=== PATIENT | female | born 1995 | race Caucasian/White ===

== ENCOUNTER 2017-04-03 15:12 | Emergency (ER) | payer MEDICAID ==
[2017-04-03 15:12] VITALS: BMI 31.2
[2017-04-03 15:17] VITALS: BP 149/80; PULSE 68; RESP 18; TEMP 99.1; O2SAT 100
--- NOTE | 2017-04-03 15:24 | ED PDOC ---
Lower Extremity Pain/Injury Time Seen by Provider: 04/03/17 15:22 Chief Complaint (Nursing): Lower Extremity Problem/Injury Chief Complaint (Provider): right foot injury History Per: Patient (Patient here with right foot twisting injury that occurred today when she twisted foot on pothole. Denies any head injury/hand injury.) Past Medical History Reviewed: Historical Data, Nursing Documentation, Vital Signs Vital Signs: Last Vital Signs Temp 99.1 F 04/03/17 15:13 Pulse 68 04/03/17 15:13 Resp 18 04/03/17 15:13 BP 149/80 04/03/17 15:13 Pulse Ox 100 04/03/17 15:13 - Family History Family History: States: Unknown Family Hx - Immunization History Hx Tetanus Toxoid Vaccination: No Hx Influenza Vaccination: No Hx Pneumococcal Vaccination: No - Home Medications Home Medications: Ambulatory Orders Medication Instructions Recorded DiphenhydrAMINE [Benadryl] 25 mg PO Q4H #20 cap 02/08/14 Prednisone 2 tab PO DAILY #10 tab 02/08/14 Naproxen 375 mg PO Q8 PRN #21 tablet 04/03/17 - Allergies Allergies/Adverse Reactions: Allergies Allergy/AdvReac Type Severity Reaction Status Date / Time No Known Allergies Allergy Unverified 02/08/14 12:01 Review of Systems ROS Statement: Except As Marked, All Systems Reviewed And Found Negative Musculoskeletal: Positive for: Foot Pain Physical Exam - Reviewed Nursing Documentation Reviewed: Yes Vital Signs Reviewed: Yes - Physical Exam Appears: Positive for: Well, Non-toxic, No Acute Distress Head Exam: Positive for: ATRAUMATIC, NORMAL INSPECTION, NORMOCEPHALIC Skin: Positive for: Normal Color, Warm, DRY Eye Exam: Positive for: EOMI, Normal appearance, PERRL ENT: Positive for: Normal ENT Inspection Neck: Positive for: Normal, Painless ROM Cardiovascular/Chest: Positive for: Regular Rate, Rhythm Respiratory: Positive for: CNT, Normal Breath Sounds Gastrointestinal/Abdominal: Positive for: Normal Exam, Bowel Sounds, Soft Back: Positive for: Normal Inspection Extremity: Positive for: Normal ROM, Tenderness, Swelling (right high speed warper tender lateral aspect; abrasion noted) Neurologic/Psych: Positive for: Alert, Oriented - ECG O2 Sat by Pulse Oximetry: 100 - Progress ED Course And Treament: tdap 0.5 ml im x 1 dose As patient took tylenol 325 mg prior to ED arrival-- will give 650 mg x 1 dose here xry of foot: neg for fx given crutch instructions. Disposition - Clinical Impression Clinical Impression: Foot sprain - Patient ED Disposition Is Patient to be Admitted: No - Disposition Disposition: Routine/Home Disposition Time: 15:55 Condition: FAIR Prescriptions: Naproxen 375 mg PO Q8 PRN #21 tablet PRN Reason: Pain, Moderate (4-7) Instructions: Foot Sprain (ED) Forms: [facility] (Nepali), [facility] ED School/Work Excuse
--- NOTE | 2017-04-03 16:11 | RAD ---
PROCEDURE: Right Foot Radiographs. HISTORY: foot injury COMPARISON: None. FINDINGS: BONES: Three views of the right foot were performed for right foot pain. No fracture is seen. No periosteal reaction is identified. Phalanges appear intact. No erosions are seen. There is no abnormal widening of the proximal 1st and 2nd tarsal metatarsal joint. JOINTS: Unremarkable. SOFT TISSUES: Normal. OTHER FINDINGS: None. IMPRESSION: No fracture appreciated.
== END 2017-04-03 16:06 | disposition home or self-care (01) ==
LOC: H.ER 15:12
DX: S93.601A Unspecified sprain of right foot, initial encounter (principal); X50.9XXA Other and unspecified overexertion or strenuous movements or postures, initial encounter; Y92.89 Other specified places as the place of occurrence of the external cause